=== PATIENT | female | born 1975 | race Caucasian/White ===

== ENCOUNTER → 2022-02-16 13:32 | Outpatient (BNVA) | payer OTHER, SELFPAY | PROVIDERS: Visit Provider Psychiatry & Neurology Psychiatry | DX: F32.A Depression, unspecified (principal); F41.9 Anxiety disorder, unspecified; F17.210 Nicotine dependence, cigarettes, uncomplicated | CPT/HCPCS: 99204 ==

== ENCOUNTER 2024-03-18 08:36 | Oncology outpatient (recurring) (ONCR) | payer OTHER, SELFPAY ==
[2024-03-18 09:53] LABS: Basophils # 0.1 10^3/uL (0.0-0.1); Basophils % 0.7 %; Eosinophils # 0.3 10^3/uL (0.0-0.8); Eosinophils % 2.2 %; Lymphocytes # 2.5 10^3/uL (0.8-4.8); Lymphocytes % 20.5 %; Mean Corpuscular HGB Conc 32.6 g/dL (30-55); Mean Corpuscular Hemoglobin 27.4 pg (27-33); Mean Corpuscular Volume 84.1 fl (85-98); Mean Platelet Volume 10.6 fL (7.4-10.4); Monocytes % 8.2 %; Neutrophils # 8.43 10^3/uL (1.8-7.7); Neutrophils % 68.2 %; Nucleated Red Blood Cells % 0 %; Platelet Count 332 10^3/cmm (157-399); Red Blood Count 4.64 10^6/uL (3.85-5.65); Red Cell Distribution Width 14.2 % (12.1-15.1); White Blood Count 12.38 10^3/uL (3.29-11.43)
[2024-03-18 10:08] LABS: Alanine Aminotransferase 10 U/L (0-33); Albumin Level 3.8 g/dL (3.5-5.2); Alkaline Phosphatase 82 U/L (35-105); Anion Gap 15.9 (5-19); Aspartate Amino Transferase 11 U/L (0-32); Blood Urea Nitrogen 15 mg/dL (6-20); Calcium 9.1 mg/dL (8.5-10.5); Carbon Dioxide 23 mmol/L (22-29); Chloride 105 mmol/L (98-107); Creatinine Clr Calc Pharmacy 104.9231; Globulin 3.1 g/dL (1.3-4.6); Glomerular Filtration Rate 77.2 mL/min (90-130); Glucose 222 mg/dL (65-115); Lactate Dehydrogenase 138 U/L (135-214); Osmolality Calculated 298 mOsm/kg (285-295); Potassium 3.9 mmol/L (3.5-5.1); Sodium 140 mmol/L (136-145); Total Bilirubin 0.2 mg/dL (0.15-1.2); Total Protein 6.9 g/dL (6.6-8.7)
[2024-03-18 10:25] LABS: LAB Peripheral Smear Sent for Review
[2024-03-18 14:52] LABS: Iron 39 ug/dL (37-145); Percent Saturation 13.5 % (20-50); Total Iron Binding Capacity 288 mcg/dl; Unsaturated Iron Binding 249 ug/dL (112-347)
== END 2024-04-15 23:59 | disposition home or self-care (01) ==
PROVIDERS: PCP Family Medicine; Visit Provider Internal Medicine Medical Oncology
DX: D72.820 Lymphocytosis (symptomatic) (principal); D64.9 Anemia, unspecified
CPT/HCPCS: 36415; 80053; 83540; 83550; 83615; 85025

== ENCOUNTER 2024-06-23 11:49 | Oncology outpatient (recurring) (ONCR) | payer OTHER, SELFPAY ==
[2024-06-23 12:49] LABS: Basophils # 0.1 10^3/uL (0.0-0.1); Eosinophils # 0.4 10^3/uL (0.0-0.8); Eosinophils % 3.2 %; Lymphocytes # 4.5 10^3/uL (0.8-4.8); Mean Corpuscular HGB Conc 33.3 g/dL (30-55); Mean Corpuscular Hemoglobin 28.9 pg (27-33); Mean Corpuscular Volume 86.9 fl (85-98); Mean Platelet Volume 10.7 fL (7.4-10.4); Monocytes # 0.8 10^3/uL (0.2-0.9); Monocytes % 6.8 %; Neutrophils # 6.23 10^3/uL (1.8-7.7); Neutrophils % 51.7 %; Nucleated Red Blood Cells % 0 %; Platelet Count 337 10^3/cmm (157-399); Red Blood Count 4.95 10^6/uL (3.85-5.65); Red Cell Distribution Width 13.1 % (12.1-15.1); White Blood Count 12.05 10^3/uL (3.29-11.43)
[2024-06-23 12:53] LABS: Erythrocyte Sedimentation Rate 23 mm/hr (0-15)
[2024-06-23 13:09] LABS: Alanine Aminotransferase 15 U/L (0-33); Albumin Level 4.2 g/dL (3.5-5.2); Alkaline Phosphatase 92 U/L (35-105); Anion Gap 16.5 (5-19); Aspartate Amino Transferase 14 U/L (0-32); Blood Urea Nitrogen 29 mg/dL (6-20); Calcium 9.1 mg/dL (8.5-10.5); Carbon Dioxide 21 mmol/L (22-29); Chloride 104 mmol/L (98-107); Globulin 3.6 g/dL (1.3-4.6); Glomerular Filtration Rate 48.2 mL/min (90-130); Glucose 137 mg/dL (65-115); Osmolality Calculated 292 mOsm/kg (285-295); Potassium 4.5 mmol/L (3.5-5.1); Sodium 137 mmol/L (136-145); Total Bilirubin 0.2 mg/dL (0.15-1.2); Total Protein 7.8 g/dL (6.6-8.7)
[2024-06-23 13:14] LABS: LAB Peripheral Smear Sent for Review
[2024-06-23 14:53] LABS: Iron 56 ug/dL (37-145); Percent Saturation 16.7 % (20-50); Total Iron Binding Capacity 335 mcg/dl; Unsaturated Iron Binding 279 ug/dL (112-347)
== END 2024-07-16 23:59 | disposition home or self-care (01) ==
PROVIDERS: Internal Medicine Medical Oncology; Nurse Practitioner Family; PCP Family Medicine; Visit Provider Internal Medicine Hematology & Oncology
DX: D72.820 Lymphocytosis (symptomatic) (principal); E61.1 Iron deficiency
CPT/HCPCS: 36415; 80053; 80503; 83540; 83550; 85025; 85651; 86140

== ENCOUNTER 2024-09-23 11:29 | Oncology outpatient (recurring) (ONCR) | payer OTHER, SELFPAY ==
[2024-09-23 11:51] LABS: Basophils # 0.1 10^3/uL (0.0-0.1); Basophils % 0.9 %; Eosinophils # 0.6 10^3/uL (0.0-0.8); Eosinophils % 4.2 %; Hematocrit 44.7 % (36-47); Lymphocytes # 4.8 10^3/uL (0.8-4.8); Lymphocytes % 36.5 %; Mean Corpuscular HGB Conc 32.7 g/dL (30-55); Mean Corpuscular Hemoglobin 29.1 pg (27-33); Mean Corpuscular Volume 89.2 fl (85-98); Mean Platelet Volume 10.4 fL (7.4-10.4); Monocytes # 0.9 10^3/uL (0.2-0.9); Monocytes % 6.7 %; Neutrophils # 6.71 10^3/uL (1.8-7.7); Neutrophils % 51.4 %; Nucleated Red Blood Cells % 0 %; Platelet Count 388 10^3/cmm (157-399); Red Blood Count 5.01 10^6/uL (3.85-5.65); Red Cell Distribution Width 12.3 % (12.1-15.1); White Blood Count 13.08 10^3/uL (3.29-11.43)
[2024-09-23 12:16] LABS: Alanine Aminotransferase 13 U/L (0-33); Albumin Level 4.4 g/dL (3.5-5.2); Alkaline Phosphatase 102 U/L (35-105); Anion Gap 17.4 (5-19); Aspartate Amino Transferase 14 U/L (0-32); Blood Urea Nitrogen 19 mg/dL (6-20); Calcium 9.7 mg/dL (8.5-10.5); Carbon Dioxide 24 mmol/L (22-29); Chloride 101 mmol/L (98-107); Creatinine Clr Calc Pharmacy 83.6854; Ferritin 50 ng/mL (15-150); Globulin 3.6 g/dL (1.3-4.6); Glomerular Filtration Rate 59.4 mL/min (90-130); Glucose 98 mg/dL (65-115); Iron 110 ug/dL (37-145); Osmolality Calculated 288 mOsm/kg (285-295); Percent Saturation 33.1 % (20-50); Potassium 4.4 mmol/L (3.5-5.1); Sodium 138 mmol/L (136-145); Total Bilirubin 0.2 mg/dL (0.15-1.2); Total Iron Binding Capacity 332 mcg/dl; Unsaturated Iron Binding 222 ug/dL (112-347)
== END 2024-10-16 23:59 | disposition home or self-care (01) ==
PROVIDERS: Nurse Practitioner Family; PCP Family Medicine; Visit Provider Internal Medicine
DX: D72.820 Lymphocytosis (symptomatic) (principal); E61.1 Iron deficiency
CPT/HCPCS: 36415; 80053; 82728; 83540; 83550; 85025

== ENCOUNTER 2025-02-10 11:39 | Oncology outpatient (recurring) (ONCR) | payer OTHER, SELFPAY ==
[2025-01-27 14:25] LABS: Basophils # 0.1 10^3/uL (0.0-0.1); Eosinophils # 0.5 10^3/uL (0.0-0.8); Eosinophils % 3.7 %; Hematocrit 40.8 % (36-47); Lymphocytes # 4.4 10^3/uL (0.8-4.8); Mean Corpuscular HGB Conc 32.8 g/dL (30-55); Mean Corpuscular Hemoglobin 28.8 pg (27-33); Mean Corpuscular Volume 87.7 fl (85-98); Mean Platelet Volume 10.2 fL (7.4-10.4); Monocytes # 0.9 10^3/uL (0.2-0.9); Monocytes % 6.8 %; Neutrophils # 6.69 10^3/uL (1.8-7.7); Neutrophils % 53.2 %; Nucleated Red Blood Cells % 0 %; Platelet Count 385 10^3/cmm (157-399); Red Blood Count 4.65 10^6/uL (3.85-5.65); Red Cell Distribution Width 12.8 % (12.1-15.1); White Blood Count 12.57 10^3/uL (3.29-11.43)
[2025-01-27 14:35] LABS: Erythrocyte Sedimentation Rate 26 mm/hr (0-15)
[2025-01-27 14:45] LABS: Alanine Aminotransferase 10 U/L (0-33); Albumin Level 3.9 g/dL (3.5-5.2); Alkaline Phosphatase 84 U/L (35-105); Anion Gap 18.1 (5-19); Aspartate Amino Transferase 13 U/L (0-32); Blood Urea Nitrogen 16 mg/dL (6-20); Carbon Dioxide 21 mmol/L (22-29); Chloride 102 mmol/L (98-107); Globulin 3.4 g/dL (1.3-4.6); Glomerular Filtration Rate 59.4 mL/min (90-130); Glucose 108 mg/dL (65-115); Lactate Dehydrogenase 165 U/L (135-214); Osmolality Calculated 286 mOsm/kg (285-295); Potassium 4.1 mmol/L (3.5-5.1); Sodium 137 mmol/L (136-145); Total Bilirubin 0.2 mg/dL (0.15-1.2); Total Protein 7.3 g/dL (6.6-8.7); Uric Acid 4.7 mg/dL (2.4-5.7)
[2025-01-28 14:25] LABS: Leukemia Profile (BBPL) See Report
== END 2025-02-13 23:59 | disposition home or self-care (01) ==
PROVIDERS: PCP Family Medicine; Visit Provider Internal Medicine
DX: Z53.9 Procedure and treatment not carried out, unspecified reason (principal)
CPT/HCPCS: 36415; 80053; 83615; 84550; 85025; 85651; 88184; 88185